=== PATIENT | male | born 1980 | race Caucasian/White ===

== ENCOUNTER 2022-11-15 09:09 | Emergency (ER) | payer OTHER, SELFPAY | END 2022-11-15 10:08 | disposition home or self-care (01) | LOC: ERS 09:09 | DX: J06.9 Acute upper respiratory infection, unspecified (principal); Z20.822 Contact with and (suspected) exposure to COVID-19 | CPT/HCPCS: 99283; U0003; U0005 ==

== ENCOUNTER 2025-04-24 08:53 | Emergency (ER) | payer SELFPAY | END 2025-04-24 09:37 | disposition home or self-care (01) | LOC: ERS 08:53 | DX: S60.944A Unspecified superficial injury of right ring finger, initial encounter (principal); S60.946A Unspecified superficial injury of right little finger, initial encounter; W20.8XXA Other cause of strike by thrown, projected or falling object, initial encounter; Y99.0 Civilian activity done for income or pay | CPT/HCPCS: 99283 ==